=== PATIENT | female | born 1975 | race Asian ===

== ENCOUNTER → 2018-10-26 | Outpatient (CLI) | payer OTHER ==
[2018-10-26 15:24] LABS: BASOPHIL % 1.3 % (0-2); PLATELET COUNT 284 x10^3mcL (130-400); RED CELL DISTRIBUTION WIDTH 13.4 % (11.5-14.5)
[2018-10-26 15:46] LABS: ALBUMIN 4.6 g/dL (3.4-5.0); ALKALINE PHOSPHATASE 64 U/L (46-116); ALT/SGPT 47 U/L (14-59); AST/SGOT 15 U/L (15-37); BILIRUBIN TOTAL 0.35 mg/dL (0.20-1.00); CALCIUM 9.3 mg/dL (8.5-10.1); CARBON DIOXIDE 28.3 mmol/L (21-32); CHLORIDE SERUM 102 mmol/L (98-107); CREATININE SERUM 0.7 mg/dL (0.6-1.0); GFR1 > 60 mL/min; GLUCOSE SERUM 94 mg/dL (74-106); POTASSIUM SERUM 3.6 mmol/L (3.5-5.1); SODIUM SERUM 139 mmol/L (136-145); TOTAL PROTEIN, SERUM 8.1 g/dL (6.4-8.2); TRIGLYCERIDES 126 mg/dL (<150)
[2018-10-26 15:50] LABS: CHOLESTEROL 225 mg/dL (<200); CHOLESTEROL/HDL RATIO 2.3; HDL CHOLESTEROL 99 mg/dL (40-60)
[2018-10-26 15:59] LABS: IRON 84 ug/dL (50-170); TOTAL IRON BINDING CAPACITY 303 ug/dL (250-450)
== END | disposition home or self-care (01) ==
LOC: LB 14:54 → EDSTATUS 15:24
PROVIDERS: Family Medicine
DX: Z00.00 Encounter for general adult medical examination without abnormal findings (principal); Z90.13 Acquired absence of bilateral breasts and nipples

== ENCOUNTER → 2019-03-20 | Outpatient (CLI) | payer OTHER ==
[2019-03-20 18:46] LABS: CALCIUM 8.6 mg/dL (8.5-10.1); CHLORIDE SERUM 105 mmol/L (98-107); CREATININE SERUM 0.6 mg/dL (0.6-1.0); GFR1 > 60 mL/min; GLUCOSE SERUM 90 mg/dL (74-106); POTASSIUM SERUM 4.4 mmol/L (3.5-5.1); SODIUM SERUM 141 mmol/L (136-145)
[2019-03-20 18:50] LABS: BASOPHIL % 0.6 % (0-2); PLATELET COUNT 283 x10^3mcL (130-400)
== END | disposition home or self-care (01) ==
LOC: LB 17:59
DX: Z01.818 Encounter for other preprocedural examination (principal)

== ENCOUNTER → 2020-02-12 | Outpatient (CLI) | payer OTHER ==
[2020-02-12 17:11] LABS: BASOPHIL % 0.4 % (0-2); PLATELET COUNT 270 x10^3mcL (130-400); RED CELL DISTRIBUTION WIDTH 13.4 % (11.5-14.5)
[2020-02-12 17:28] LABS: ALBUMIN 4.2 g/dL (3.4-5.0); ALKALINE PHOSPHATASE 53 U/L (46-116); ALT/SGPT 52 U/L (14-59); AST/SGOT 28 U/L (15-37); BILIRUBIN TOTAL 0.3 mg/dL (0.20-1.00); CALCIUM 9.4 mg/dL (8.5-10.1); CARBON DIOXIDE 28.2 mmol/L (21-32); CHLORIDE SERUM 103 mmol/L (98-107); CREATININE SERUM 0.7 mg/dL (0.6-1.0); GFR1 > 60 mL/min; GLUCOSE SERUM 98 mg/dL (74-106); POTASSIUM SERUM 4.1 mmol/L (3.5-5.1); SODIUM SERUM 139 mmol/L (136-145); TOTAL PROTEIN, SERUM 7.9 g/dL (6.4-8.2)
== END | disposition home or self-care (01) ==
LOC: LB 16:36
DX: R42 Dizziness and giddiness (principal)

== ENCOUNTER → 2020-03-11 | Outpatient (CLI) | payer OTHER | END | disposition home or self-care (01) | LOC: CT 14:42 | PROVIDERS: ATTEND Family Medicine | PROC: BW281ZZ Computerized Tomography (CT Scan) of Head using Low Osmolar Contrast (ICD-10-PCS; principal; 2020-03-11) | DX: R51.9 Headache, unspecified (principal) | CPT/HCPCS: Q9967 ==